=== PATIENT | male | born 1965 | race Caucasian/White ===

== ENCOUNTER 2021-08-20 12:33 | Emergency (ER) | payer OTHER ==
[~2021-08-20] VITALS: Ht 182.9 cm; Wt 131.0 kg
[~2021-08-20 12:33] MED LIST: COZAAR100 MG PO; LEXAPRO10 MG PO; TOPROL XL25 MG PO
--- OUTSIDE RECORDS SUMMARY | 2021-08-20 12:36 | XMS ---
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 There are no care providers on record at this time. Jermaine has no Care Guidelines for this patient. Bill VISIT COUNT (12 MO.) 1 ALISON Guthrie TOTAL 1 NOTE: Visits indicate total known visits. ED/C VISIT TRACKING (12 MO.) 08/20/2021 12:34 ALISON Pickard [place] TYPE: Emergency COMPLAINT: - R FLANK PAIN INPATIENT VISIT TRACKING (12 MO.) No inpatient visits to display in this time frame [email or web address]
[2021-08-20] MEDS ORDERED: BISOPROLOL FUMAR5 MG PO (13:40)
[2021-08-20] MEDS ORDERED: FLOMAX0.4 MG PO (15:37)
[2021-08-20] MEDS ORDERED: HYDROCODON-ACE1 EA11 PO (15:37)
== END 2021-08-20 15:46 | disposition home or self-care (01) ==
LOC: ED 12:33
DX: N20.1 Calculus of ureter (principal); I10 Essential (primary) hypertension; Z88.8 Allergy status to other drugs, medicaments and biological substances; Z79.899 Other long term (current) drug therapy
CPT/HCPCS: 81001; 96372; 99284; J1885

== ENCOUNTER 2022-08-27 07:00 | Day surgery (SDC) | payer OTHER ==
[~2022-08-27] VITALS: Ht 182.9 cm; Wt 127.3 kg
[~2022-08-27 07:00] MED LIST changes: +ALLEGRA ALLERG180 MG PO; +AZELASTINE137 MCG/0. NAS; +BISOPROLOL FUMAR5 MG PO; +CLARITIN10 M3 PO; +FLOMAX0.4 MG PO; +FLONASE ALLERG9.9 ML; +HYDROCODON-ACE1 EA11 PO; +PROAIR HFA8.5 GM INH; +PROZAC20 MG PO; +XANAX0.25 MG PO
--- NOTE | 2022-08-27 09:11 | NUR ---
08/27/22 0910 Sylvia Howell 0858 PATIENT ARRIVES TO PACU RESTING WITH EYES CLOSED. AWAKENS WITH VERBAL STIMULI. STAYS AWAKE. ASKING/ANSWERING QUESTIONS APPROPRIATELY. RESP EVEN AND UNLABORED, NC AT 4 LITERS, TURNED OFF. 0910 PATIENT AWAKE TALKING WITH STAFF. DENIES PAIN OR NAUSEA. TALKING WITH DR BEAL AT BEDSIDE. RESP EVEN AND UNLABORED, ROOM AIR SATS >98%.
--- NOTE | 2022-08-27 10:32 | NUR ---
PT ALERT, ORIENTED AND SUPPORTED BY HIS YOLANDA. PT HAS SCOPES BEFORE, HIS FAMILY HISTORY ENCOURAGES HIS TO STAY CURRENT. YOLANDA WILL REMAIN FOR DC. GAVE BLESSING AND ENCOURAGEMENT
--- NOTE | 2022-08-27 14:12 | OR ---
[facility] [address], [place] [address] Signed DATE OF OPERATION: 08/27/2022 SURGEON: Gunner Beal MD PREOPERATIVE DIAGNOSES: 1. Maternal grandmother with colon cancer age 70 and a few years later from the colon cancer. 2. A maternal aunt with colon cancer, age 48. 3. Internal hemorrhoids. POSTOPERATIVE DIAGNOSES: 1. Minimal sigmoid diverticulosis. 2. Minimal internal hemorrhoids. PROCEDURE: Colonoscopy with without biopsy. ESTIMATED BLOOD LOSS: None. INDICATIONS: Franny is a 56-year-old obese gentleman, asked to see me for followup colonoscopy. We know his maternal grandmother had colon cancer at age 70. She just a few years later from her colon cancer. He is also pretty certain that his maternal aunt had colon cancer at age 48. I helped him with a colonoscopy in 2017 at the age of 50. That was his initial colonoscopy. He had some internal hemorrhoid tissue. In the meantime, he said he is doing fine. He has no lower GI complaints. In the office, I gave him a pamphlet on colonoscopy and we had reviewed the nature of the test. There is risk including, but not limited to gas bloating, crampy abdominal pain, bleeding, perforation requiring surgery, and missed diagnosis. We also reviewed the need for sedation. He had used 12 mg of Versed and 250 mcg of fentanyl previously. He was still wide awake and we almost had to have our anesthesia provider give him propofol. In addition, he has a very full round face with a heavy chest and abdomen. He also has sleep apnea. I explained to Jose Guadalupe it will be much safer for him to have monitored anesthesia care with propofol infusion. In fact, he brought that up to me today as we came into the endoscopy suite. Indeed, he did much better today. He had expressed understanding and wished to proceed. PROCEDURE IN DETAIL: Franny was taken into our endoscopy suite and placed in the left lateral decubitus Electronically Signed By: GUNNER BEAL MD 08/27/22 1412 PATIENT NAME: FRANNY SNYDER OPERATIVE REPORT DATE OF : 65 REPORT #: [id number] PHYSICIAN: GUNNER BEAL MD PCP: CARY FLETCHER REPORT IS CONFIDENTIAL AND NOT TO BE RELEASED WITHOUT AUTHORIZATION [facility] [address], [place] [address] Signed position. He was given monitored anesthesia care with propofol per our nurse writing manager. In that regard, Franny did very well today. A digital rectal exam was performed and this was unremarkable. No external hemorrhoids. Good sphincter tone. His prostate is not particularly enlarged yet, but he is getting a little indurated. The adult colonoscope had been introduced and advanced quite readily up to the cecum without difficulty with the help of the propofol infusion. His prep was quite excellent. We could easily see the appendiceal orifice and the ileocecal valve. The scope was slowly withdrawn. We found that on this occasion he has just a few diverticula in his the sigmoid colon. They were small in size, few in number, and scattered about. After this, we could see the rectum was unremarkable. We retroflexed the scope and he has very minimal internal hemorrhoid tissue. The gas was then suctioned out and the colonoscope removed. Franny tolerated the procedure quite well. RECOMMENDATIONS: I will see Franny back in 5 years for repeat colonoscopy due to his family history. He will always need monitored anesthesia care with propofol. Gunner Beal MD ALB/MODL /[id number] cc: MD Cary Griffith PA Copies: GUNNER BEAL MD, LINDA PA ~ Electronically Signed By: GUNNER BEAL MD 08/27/22 1412 PATIENT NAME: FRANNY SNYDER OPERATIVE REPORT DATE OF : 65 REPORT #: [id number] PHYSICIAN: GUNNER BEAL MD PCP: CARY FLETCHER REPORT IS CONFIDENTIAL AND NOT TO BE RELEASED WITHOUT AUTHORIZATION
== END 2022-08-27 09:30 | disposition home or self-care (01) ==
LOC: OPS 07:00 → DS 07:00 → OPS 08:15 → DS 10:00
PROVIDERS: ATTEND Colon & Rectal Surgery
PROC: 0DJD8ZZ Inspection of Lower Intestinal Tract, Via Natural or Artificial Opening Endoscopic (ICD-10-PCS; 2022-08-27)
PROC: 0DJD8ZZ Inspection of Lower Intestinal Tract, Via Natural or Artificial Opening Endoscopic (ICD-10-PCS; principal; 2022-08-27 08:30)
DX: Z12.11 Encounter for screening for malignant neoplasm of colon (principal); K57.30 Diverticulosis of large intestine without perforation or abscess without bleeding; K64.0 First degree hemorrhoids; I10 Essential (primary) hypertension; E66.9 Obesity, unspecified; F41.9 Anxiety disorder, unspecified; Z80.0 Family history of malignant neoplasm of digestive organs; Z88.1 Allergy status to other antibiotic agents; Z88.0 Allergy status to penicillin
CPT/HCPCS: J2704; J7121